=== PATIENT | female | born 1975 | race Caucasian/White ===

== ENCOUNTER 2016-10-13 22:20 | Emergency (ER) | payer MEDICARE, MEDICAID ==
[~2016-10-13] VITALS: Ht 167.6 cm; Wt 97.6 kg
[~2016-10-13 22:20] MED LIST: BUSPIRONE5 MG PO; CIPROFLOXACN500 MG PO; LAMICTAL25 M1 PO; SAPHRIS5 MG SL
[2016-10-14 00:17] LABS: URINE BILIRUBIN - DIPSTICK NEGATIVE (NEGATIVE); URINE BLOOD DIPSTICK NEGATIVE (NEGATIVE); URINE CLARITY SLIGHT CLOUDY; URINE COLOR YELLOW; URINE GLUCOSE - DIPSTICK NEGATIVE (NEGATIVE); URINE KETONE TRACE mg/dL (NEGATIVE); URINE LEUK ESTERASE NEGATIVE (NEGATIVE); URINE NITRITE - DIPSTICK NEGATIVE (Negative); URINE PROTEIN - DIPSTICK NEGATIVE (NEG-TRACE); URINE UROBILINOGEN - DIPSTICK 0.2 E.U./dL (0.2)
[2016-10-14 00:18] LABS: IMMATURE GRANULOCYTES 0.3 % (0.0-1.0); MEAN CELL VOLUME 100.2 fL CALC (80.0-100.0); MEAN CORPUSCULAR HGB 32.7 pG CALC (26.0-32.0); MEAN CORPUSCULAR HGB CONC 32.7 g/L CALC (32.0-36.0); NEUT# 8.43 thou/uL (2.00-7.15); RED BLOOD COUNT 4.89 mill/uL (4.20-5.60)
[2016-10-14 00:27] LABS: ALBUMIN 4.8 g/dL (3.2-5.0); ALKALINE PHOSPHATASE 92 u/l (38-126); AMYLASE 44 u/l (30-110); ANION GAP 18 (6-22 (CALC)); BILIRUBIN, TOTAL 0.5 mg/dL (0.0-1.4); BUN 18 mg/dL (7-17); BUN/CREATININE RATIO 24 (12-20 (CALC)); CALCIUM 10.3 mg/dL (8.4-10.2); CARBON DIOXIDE 23 mmol/l (22-30); CHLORIDE 105 mmol/l (95-108); CREATININE 0.7 mg/dL (0.5-1.0); GFR > 60 ML/MIN (>=60 (CALC)); GFR FOR AFR.AMER. > 60 ML/MIN (>=60 (CALC)); GLUCOSE 90 mg/dL (65-105); LIPASE 223 u/l (23-300); POTASSIUM 4.7 mmol/l (3.5-5.1); SGOT/AST 22 u/l (14-36); SGPT/ALT 36 u/l (9-52); SODIUM 142 mmol/l (137-146); TOTAL PROTEIN 7.9 g/dL (6.3-8.2)
[2016-10-14 00:51] VITALS: BP 131/69
== END 2016-10-14 00:51 | disposition home or self-care (01) ==
LOC: ED 22:20
PROVIDERS: Emergency Medicine
DX: R10.31 Right lower quadrant pain (principal); R11.2 Nausea with vomiting, unspecified; R19.7 Diarrhea, unspecified

== ENCOUNTER 2017-08-21 22:32 | Emergency (ER) | payer MEDICARE, MEDICAID ==
[~2017-08-21] VITALS: Ht 167.6 cm; Wt 105.0 kg
[2017-08-21] MEDS ORDERED: ENBREL50 MG/M1 SC (22:48)
[2017-08-21] MEDS ORDERED: METHOTREXATE (22:49)
[2017-08-21] MEDS ORDERED: PREDNISONE20 MG PO (22:49)
[2017-08-21] MEDS ORDERED: ATIVAN1 MG PO (22:49)
[2017-08-21 23:55] LABS: HEMATOCRIT 48.8 % (37.0-47.0); IMMATURE GRANULOCYTES 0.3 % (0.0-1.0); MEAN CELL VOLUME 102.5 fL CALC (80.0-100.0); MEAN CORPUSCULAR HGB 33.6 pG CALC (26.0-32.0); MEAN CORPUSCULAR HGB CONC 32.8 g/L CALC (32.0-36.0); NEUT# 6.84 thou/uL (2.00-7.15); RED BLOOD COUNT 4.76 mill/uL (4.20-5.60); RED CELL DISTRI WIDTH 13.5 % (11.5-15.5)
[2017-08-22 00:10] LABS: ALBUMIN 4.7 g/dL (3.2-5.0); ALKALINE PHOSPHATASE 110 u/l (38-126); AMYLASE 51 u/l (30-110); ANION GAP 19 (6-22 (CALC)); BILIRUBIN, TOTAL 0.5 mg/dL (0.0-1.4); BUN 19 mg/dL (7-17); BUN/CREATININE RATIO 25 (12-20 (CALC)); CARBON DIOXIDE 25 mmol/l (22-30); CHLORIDE 105 mmol/l (95-108); CREATININE 0.7 mg/dL (0.5-1.0); GFR > 60 ML/MIN (>=60 (CALC)); GFR FOR AFR.AMER. > 60 ML/MIN (>=60 (CALC)); LIPASE 162 u/l (23-300); POTASSIUM 4.6 mmol/l (3.5-5.1); SGOT/AST 29 u/l (14-36); SGPT/ALT 65 u/l (9-52); SODIUM 144 mmol/l (137-146); TOTAL PROTEIN 7.9 g/dL (6.3-8.2)
[2017-08-22 00:49] VITALS: BP 128/73
== END 2017-08-22 00:57 | disposition home or self-care (01) ==
LOC: ED 22:32
PROVIDERS: Family Medicine
DX: R10.31 Right lower quadrant pain (principal); F20.9 Schizophrenia, unspecified; F31.9 Bipolar disorder, unspecified; F41.9 Anxiety disorder, unspecified; M06.9 Rheumatoid arthritis, unspecified; F17.210 Nicotine dependence, cigarettes, uncomplicated